=== PATIENT | male | born 1945 | race Caucasian/White ===

== ENCOUNTER 2023-05-14 10:03 | Outpatient (CLI) | payer MEDICARE, SELFPAY ==
--- NOTE | ~2023-05-14 | CT_ITS ---
EXAMINATION: CT abdomen pelvis wo/w con DATE: 05/14/2023 10:55 INDICATION: Other microscopic hematuria. TECHNIQUE: Computed tomography (CT) of the abdomen and pelvis was performed without and with intraven ous contrast using a total of 130 mL Omnipaque-350 intravenous contrast with a double-bolus technique for simultaneous opacification of the renal parenchyma and renal collecting system. Automated exposu re control and iterative reconstruction technique were employed. The dose-length product was 893.61 m Gy-cm. COMPARISON: None FINDINGS: The visualized portions of the lung bases demonstrate mild atelectasis is and mild chronic interstiti al lung disease. No pleural effusion. The heart size is normal. There are coronary artery calcificati ons. No pericardial effusion. There is a 5 mm cyst in the liver. There are changes of cholecystectomy . The spleen and pancreas are normal. The adrenal glands are normal. There are cysts in the kidneys m easuring up to 19 mm in the left. There is a 2 mm stone in right kidney. There are 3 stones in left k idney measuring up to 4 mm. The ureters are well opacified and are normal. The prostate is severely e nlarged. There are brachytherapy seeds in the prostate. There is diffuse bladder wall thickening, lik sanford secondary to chronic outlet obstruction. The bladder is not well distended. The appendix is not v isualized. There is a right posterior diaphragmatic hernia containing fat. There are no pathologicall y enlarged lymph nodes. There is no free intraperitoneal fluid. There is severe lower lumbar spondylo sis. IMPRESSION: 1. Bilateral nonobstructing kidney stones. 2. Severely enlarged prostate with brachytherapy seeds. 3. Diffuse bladder wall thickening, likely secondary to chronic outlet obstruction. Reviewed, dictated and finalized at location E. BUYER IMPRESSION: 1. Bilateral nonobstructing kidney stones. 2. Severely enlarged prostate with brachytherapy seeds. 3. Diffuse bladder wall thickening, likely secondary to chronic outlet obstruct ion.
--- NOTE | ~2023-05-14 | XR_ITS ---
Supine and upright views of the abdomen Clinical history: Microscopic hematuria Findings: Bowel gas pattern is nonspecific. No evidence for obstruction or free air. Questionable sma ll bilateral renal stones. There is excreted contrast in the renal collecting systems bilaterally. Ch olecystectomy clips are present. Osseous structures are intact. Impression: Questionable small bilateral renal stones, but evaluation is confounded by excreted contrast material the renal collecting systems and urinary bladder. Reviewed, dictated and finalized at location M. T BAILIFF OR SHERIFF Impression: Questionable small bilateral renal stones, but evaluation is confounded by excr eted contrast material the renal collecting systems and urinary bladder.
[2023-05-14 10:38] LABS: Estimated Glomerular Filt Rate 54
== END 2023-05-14 10:04 | disposition home or self-care (01) ==
LOC: ANHIMG 10:12
PROVIDERS: Visit Provider Urology
DX: N20.0 Calculus of kidney (principal); N40.0 Benign prostatic hyperplasia without lower urinary tract symptoms; N32.89 Other specified disorders of bladder; R31.29 Other microscopic hematuria
CPT/HCPCS: 74018; 74178; Q9967

== ENCOUNTER 2023-07-22 08:41 | Outpatient (CLI) | payer MEDICARE, SELFPAY ==
--- NOTE | ~2023-07-22 | CT_ITS ---
CT of the Abdomen and Pelvis: Indication: Microscopic hematuria Technique: 2.5 mm axial scans were obtained through the abdomen and pelvis prior to and following in travenous administration of 130 cc of Omnipaque 350. Dose reduction technique was used on this scan b y utilizing automated exposure control and iterative reconstruction technique. The dose-length produc t (DLP) was 1054.06 mGy-cm. COMPARISON: 05/14/2023 Findings: Scans through the lung bases are unremarkable. Small nonobstructing left renal stones measuring up to 3-4 mm in size. No ureteral stone or right epi physis on either side. Bilateral renal cysts are present. No hydronephrosis. The liver, spleen, pancreas, and adrenal glands are within normal limits. Cholecystectomy clips are p resent. No evidence of aortic aneurysm. No lymphadenopathy. No bowel obstruction or bowel wall thickening. There is no evidence to suggest acute appendicitis. Images through the pelvis were performed. Urinary bladder unremarkable. Prostate gland is markedly en larged. No ascites. Impression: Small nonobstructing left renal stones. Markedly enlarged prostate gland. Reviewed, dictated and finalized at location M. Impression: Small nonobstructing left renal stones. Markedly enlarged prostate gland.
--- NOTE | ~2023-07-22 | XR_ITS ---
XR abdomen/kub 1V 07/22/2023 08:57 INDICATION: Microscopic hematuria TECHNIQUE: KUB COMPARISON: 05/14/2023 FINDINGS: Bowel gas pattern is normal. There are cholecystectomy clips. There is no evidence of free air, mass, organomegaly, ascites or obstruction. There are left renal stones partially obscured by ab wel content. The bones appear intact. There are surgical changes of the pelvis. IMPRESSION: 1: Left nephrolithiasis. Reviewed, dictated and finalized at location B. IMPRESSION: 1: Left nephrolithiasis.
[2023-07-22 09:09] LABS: Estimated Glomerular Filt Rate 54
== END 2023-07-22 08:42 | disposition home or self-care (01) ==
LOC: ANHIMG 08:44
PROVIDERS: Visit Provider Urology
DX: R31.29 Other microscopic hematuria (principal); N20.0 Calculus of kidney; N40.0 Benign prostatic hyperplasia without lower urinary tract symptoms
CPT/HCPCS: 74018; 74178; Q9967